=== PATIENT | male | born 1975 | race Caucasian/White ===

== ENCOUNTER 2018-02-25 18:14 | Inpatient (IN) | payer OTHER ==
[2018-02-25 20:33] LABS: ADD MAN DIFF? NO
[2018-02-25 20:37] LABS: BASOPHIL # 0.1 10^3/ul (0.0-0.1); BASOPHILS % 0.5 % (0.0-2.0); EOSINOPHILS # 0.1 10^3/ul (0.0-0.5); EOSINOPHILS % 0.7 % (0.0-7.0); HEMATOCRIT 44.1 % (42.0-52.0); HEMOGLOBIN 15.3 g/dl (14.0-18.0); LYMPHOCYTES # 2.8 10^3/ul (0.8-2.9); MEAN CORPUSCULAR HGB CONC 34.7 g/dl (32.0-37.0); MEAN CORPUSCULAR VOLUME 89.5 fl (82.0-101.0); MEAN PLATELET VOLUME 11.1 fl (7.4-10.4); MONOCYTE # 0.7 10^3/ul (0.3-0.9); NEUTROPHIL # 6.6 10^3/ul (1.6-7.5); PLATELET COUNT 203 10^3/UL (140-415); RED BLOOD COUNT 4.93 10^6/ul (4.70-6.10)
[2018-02-25 20:37] LABS: WHITE BLOOD COUNT 10.3 10^3/ul (4.8-10.8)
[2018-02-25] MEDS: SOD CHLORIDE 0.9% 1,000 ML IV ×2 (20:38→20:39)
[2018-02-25 20:50] LABS: ADD UMIC YES; UR ASCORBIC ACID NEGATIVE (NEGATIVE); UR BILIRUBIN (Dip) NEGATIVE (NEGATIVE); UR BLOOD (Dip) 1+ mg/dL (NEGATIVE); UR CLARITY SLIGHTLY CLOUDY (CLEAR); UR COLOR STRAW (YELLOW); UR GLUCOSE (Dip) 3+ mg/dL (NEGATIVE); UR KETONES (Dip) 2+ mg/dL (NEGATIVE); UR LEUKOCYTE ESTERASE (Dip) 3+ Leu/ul (NEGATIVE); UR MUCUS FEW /HPF (NONE SEEN); UR NITRITE (Dip) NEGATIVE (NEGATIVE); UR RBC 10 /HPF (0-5); UR SQUAMOUS EPITHELIAL CELL FEW /HPF (FEW); UR TOTAL PROTEIN (Dip) NEGATIVE (NEGATIVE); UR UROBILINOGEN (Dip) NEGATIVE (NEGATIVE); UR WBC 18 /HPF (0-5)
[2018-02-25 20:52] LABS: ANION GAP 18 (8-16); BLOOD UREA NITROGEN 17 mg/dl (7-20); CALCIUM 8.9 mg/dl (8.4-10.2); CARBON DIOXIDE 19 mmol/L (21-31); CHLORIDE 98 mmol/L (97-110); CREATININE 0.78 mg/dl (0.61-1.24); PHOSPHORUS 3.5 mg/dl (2.5-4.9); POTASSIUM 3.9 mmol/L (3.5-5.1); SODIUM 131 mmol/L (135-144)
[2018-02-25 21:00] LABS: GLUCOSE 518 mg/dl (70-220)
[2018-02-25] MEDS: CEFTRIAXONE 1 GM/50 ML (PMX) 50 ML IVPB (22:28)
[2018-02-25 22:30] LABS: MODE ROOM AIR; MetHgb Venous 0.2 %; Sample Type Blood venous; Site VENOUS LINE; Venous COHb 0.4 %; Venous Fraction OxyHgb 84.2 %; Venous Oxygen Sat 84.7 mmHG (55.0-75.0); Venous Total Hemglobin 15.7 g/dl
[2018-02-26] MEDS ORDERED: ONDANSETRON 4 MG INJ IV (02:00)
[2018-02-26] MEDS ORDERED: ALBUTEROL/IPRATROPIUM (NEB) 3 ML AMP HHN (02:00)
[2018-02-26] MEDS ORDERED: NACL 0.9% 3 ML SYG IV (02:00)
[2018-02-26] MEDS ORDERED: GLUCOSE GEL 15 GRAM TUBE PO ×2 (02:30)
[2018-02-26] MEDS ORDERED: GLUCOSE GEL 15 GRAM TUBE BUCCAL (02:30)
[2018-02-26] MEDS ORDERED: DEXTROSE 50% 50 ML SYRINGE IV ×2 (02:30)
[2018-02-26] MEDS ORDERED: GLUCAGON 1 MG INJ IM (02:30)
[2018-02-26] MEDS: SOD CHLORIDE 0.9% 1,000 ML IV ×3 (03:30→14:24)
[2018-02-26] MEDS: INSULIN GLARGINE [LANTus] (100 UNITS/ML) SYG SC ×2 (03:35→20:22)
[2018-02-26] MEDS: INSULIN ASPART [NOVOLOG] 3 ML PEN SC ×8 (03:35→20:23)
[2018-02-26] MEDS: ACCU-CHEK XX (03:51)
[2018-02-26 05:12] LABS: ADD MAN DIFF? NO
[2018-02-26 05:16] LABS: BASOPHIL # 0.1 10^3/ul (0.0-0.1); BASOPHILS % 0.6 % (0.0-2.0); EOSINOPHILS # 0.1 10^3/ul (0.0-0.5); EOSINOPHILS % 1.4 % (0.0-7.0); HEMOGLOBIN 13.8 g/dl (14.0-18.0); LYMPHOCYTES # 2.9 10^3/ul (0.8-2.9); LYMPHOCYTES % 33.4 % (15.0-51.0); MEAN CORPUSCULAR HEMOGLOBIN 31.4 pg (29.0-33.0); MEAN CORPUSCULAR HGB CONC 34.5 g/dl (32.0-37.0); MEAN CORPUSCULAR VOLUME 90.9 fl (82.0-101.0); MEAN PLATELET VOLUME 11.2 fl (7.4-10.4); MONOCYTE # 0.6 10^3/ul (0.3-0.9); MONOCYTES % 7.2 % (0.0-11.0); NEUTROPHIL # 4.9 10^3/ul (1.6-7.5); NEUTROPHILS % 56.2 % (39.0-77.0); PLATELET COUNT 162 10^3/UL (140-415); RED CELL DISTRIBUTION WIDTH 13.2 % (11.5-14.5)
[2018-02-26 05:16] LABS: WHITE BLOOD COUNT 8.7 10^3/ul (4.8-10.8)
[2018-02-26 05:48] LABS: ALANINE AMINOTRANSFERASE 17 IU/L (13-69); ALBUMIN 2.7 g/dl (3.3-4.9); ALKALINE PHOSPHATASE 114 IU/L (42-121); ANION GAP 15 (8-16); ASPARTATE AMINO TRANSFERASE 15 IU/L (15-46); BILIRUBIN,INDIRECT 0.5 mg/dl (0-1.1); BILIRUBIN,TOTAL 0.5 mg/dl (0.2-1.3); BLOOD UREA NITROGEN 12 mg/dl (7-20); CALCIUM 8.5 mg/dl (8.4-10.2); CARBON DIOXIDE 22 mmol/L (21-31); CHLORIDE 104 mmol/L (97-110); CHOL/HDL RATIO 6.2 RATIO; CHOLESTEROL 168 mg/dl (100-200); CREATININE 0.71 mg/dl (0.61-1.24); GLUCOSE 347 mg/dl (70-220); HDL CHOLESTEROL 27 mg/dl (27-67); LDL CHOLESTEROL,CALCULATED 88 mg/dl; PHOSPHORUS 3.8 mg/dl (2.5-4.9); POTASSIUM 3.9 mmol/L (3.5-5.1); SODIUM 137 mmol/L (135-144); TOTAL PROTEIN 5.4 g/dl (6.1-8.1); TRIGLYCERIDES 267 mg/dl (0-149)
[2018-02-26] MEDS: CIPROFLOXACIN 400MG/D5W 200 ML IVPB ×2 (08:14→20:23)
[2018-02-26 09:21] LABS: BASOPHILS % (M) 1 % (0-2); EOSINOPHILS % (M) 1 % (0-7); LYMPHOCYTES #M 3.8 10^3/ul (0.8-2.9); LYMPHOCYTES % (M) 44 % (15-51); MONOCYTE #M 0.2 10^3/ul (0.3-0.9); MONOCYTES % (M) 3 % (0-11); PLATELET ESTIMATE NORMAL; REACTIVE LYMPHOCYTES% (M) 1 % (0-0); SEGMENTED NEUTROPHILS (M) % 50 % (39-77); SMUDGE%M 25 % (0-0)
[2018-02-26] MEDS: ACETAMINOPHEN 325 MG TAB PO (16:23)
[2018-02-26] MEDS: INFLUENZA VIRUS VACCINE 0.5 ML (DISPENSING) IM* (18:12)
[2018-02-26] MEDS ORDERED: INSULIN GLARGINE [LANTus] (100 UNITS/ML) SYG SC (20:00)
[2018-02-27] MEDS: ACETAMINOPHEN 325 MG TAB PO ×3 (00:34→19:05)
[2018-02-27] MEDS: SOD CHLORIDE 0.9% 1,000 ML IV ×5 (00:36→19:49)
[2018-02-27] MEDS: ACCU-CHEK XX (02:33)
[2018-02-27 05:50] LABS: ADD MAN DIFF? NO
[2018-02-27 05:57] LABS: BASOPHILS % 0.4 % (0.0-2.0); EOSINOPHILS # 0.1 10^3/ul (0.0-0.5); EOSINOPHILS % 0.9 % (0.0-7.0); HEMATOCRIT 41.1 % (42.0-52.0); HEMOGLOBIN 14.3 g/dl (14.0-18.0); LYMPHOCYTES # 2.3 10^3/ul (0.8-2.9); MEAN CORPUSCULAR HEMOGLOBIN 31.2 pg (29.0-33.0); MEAN CORPUSCULAR HGB CONC 34.8 g/dl (32.0-37.0); MEAN CORPUSCULAR VOLUME 89.5 fl (82.0-101.0); MEAN PLATELET VOLUME 11.5 fl (7.4-10.4); MONOCYTE # 0.5 10^3/ul (0.3-0.9); NEUTROPHIL # 4.6 10^3/ul (1.6-7.5); NEUTROPHILS % 60.9 % (39.0-77.0); PLATELET COUNT 163 10^3/UL (140-415); RED BLOOD COUNT 4.59 10^6/ul (4.70-6.10); RED CELL DISTRIBUTION WIDTH 13.2 % (11.5-14.5)
[2018-02-27 05:57] LABS: WHITE BLOOD COUNT 7.6 10^3/ul (4.8-10.8)
[2018-02-27 06:37] LABS: ANION GAP 10 (8-16); BLOOD UREA NITROGEN 9 mg/dl (7-20); CALCIUM 8.5 mg/dl (8.4-10.2); CARBON DIOXIDE 25 mmol/L (21-31); CHLORIDE 105 mmol/L (97-110); CREATININE 0.64 mg/dl (0.61-1.24); GLUCOSE 260 mg/dl (70-220); MAGNESIUM 1.8 mg/dl (1.7-2.5); PHOSPHORUS 3.7 mg/dl (2.5-4.9); POTASSIUM 3.4 mmol/L (3.5-5.1); SODIUM 137 mmol/L (135-144)
[2018-02-27 06:40] LABS: HEMOGLOBIN A1C 11.1 % (0-5.9)
[2018-02-27] MEDS: CIPROFLOXACIN 400MG/D5W 200 ML IVPB ×2 (08:12→21:07)
[2018-02-27] MEDS: INSULIN ASPART [NOVOLOG] 3 ML PEN SC ×7 (08:14→21:00)
[2018-02-27] MEDS: POTASSIUM CHLORIDE (SR) 20 MEQ TAB PO (10:29)
[2018-02-27] MEDS: LINAGLIPTIN 5 MG TABLET PO (10:35)
[2018-02-27] MEDS: metFORMIN 500 MG TAB PO ×2 (10:35→17:44)
[2018-02-27] MEDS: INSULIN GLARGINE [LANTus] (100 UNITS/ML) SYG SC (21:10)
[2018-02-28] MEDS: ACETAMINOPHEN 325 MG TAB PO ×2 (01:55→07:59)
[2018-02-28] MEDS: SOD CHLORIDE 0.9% 1,000 ML IV ×4 (01:59→15:17)
[2018-02-28] MEDS: ACCU-CHEK XX (02:00)
[2018-02-28 05:02] LABS: ADD MAN DIFF? NO
[2018-02-28 05:09] LABS: WHITE BLOOD COUNT 7.5 10^3/ul (4.8-10.8)
[2018-02-28 05:09] LABS: BASOPHILS % 0.5 % (0.0-2.0); EOSINOPHILS # 0.1 10^3/ul (0.0-0.5); EOSINOPHILS % 1.3 % (0.0-7.0); HEMATOCRIT 39.3 % (42.0-52.0); HEMOGLOBIN 13.7 g/dl (14.0-18.0); LYMPHOCYTES # 2.6 10^3/ul (0.8-2.9); LYMPHOCYTES % 34.6 % (15.0-51.0); MEAN CORPUSCULAR HEMOGLOBIN 31.3 pg (29.0-33.0); MEAN CORPUSCULAR HGB CONC 34.9 g/dl (32.0-37.0); MEAN CORPUSCULAR VOLUME 89.7 fl (82.0-101.0); MEAN PLATELET VOLUME 11.1 fl (7.4-10.4); MONOCYTE # 0.6 10^3/ul (0.3-0.9); MONOCYTES % 7.8 % (0.0-11.0); NEUTROPHIL # 4.1 10^3/ul (1.6-7.5); NEUTROPHILS % 55.1 % (39.0-77.0); PLATELET COUNT 163 10^3/UL (140-415); RED BLOOD COUNT 4.38 10^6/ul (4.70-6.10); RED CELL DISTRIBUTION WIDTH 13.2 % (11.5-14.5)
[2018-02-28 05:47] LABS: ANION GAP 7 (8-16); BLOOD UREA NITROGEN 8 mg/dl (7-20); CALCIUM 8.1 mg/dl (8.4-10.2); CARBON DIOXIDE 27 mmol/L (21-31); CHLORIDE 108 mmol/L (97-110); CREATININE 0.66 mg/dl (0.61-1.24); GLUCOSE 179 mg/dl (70-220); POTASSIUM 3.4 mmol/L (3.5-5.1); SODIUM 139 mmol/L (135-144)
[2018-02-28] MEDS: metFORMIN 500 MG TAB PO ×2 (08:04→17:40)
[2018-02-28] MEDS: CIPROFLOXACIN 400MG/D5W 200 ML IVPB (08:04)
[2018-02-28] MEDS: LINAGLIPTIN 5 MG TABLET PO (08:04)
[2018-02-28] MEDS: INSULIN ASPART [NOVOLOG] 3 ML PEN SC ×6 (08:06→17:42)
[2018-02-28] MEDS: POTASSIUM CHLORIDE (SR) 20 MEQ TAB PO (09:35)
[2018-02-28] MEDS ORDERED: ACET/BUTAL/CAFF TAB PO (11:00)
[2018-02-28] MEDS ORDERED: INSULIN GLARGINE [LANTus] (100 UNITS/ML) SYG SC (20:00)
== END 2018-02-28 19:20 | disposition home or self-care (01) | DRG 638 ==
LOC: E/R 18:14 → 2NE 22:26
DX: E11.10 Type 2 diabetes mellitus with ketoacidosis without coma (principal); N39.0 Urinary tract infection, site not specified; Z79.4 Long term (current) use of insulin
CPT/HCPCS: 36415; 80048; 80053; 80061; 81001; 82803; 82962; 83036; 83735; 84100; 85025; 87086; 90686; 99285-25